=== PATIENT | male | born 1990 | race Caucasian/White ===

== ENCOUNTER 2019-02-14 05:05 | Emergency (ER) | payer OTHER ==
[2019-02-14 05:10] VITALS: BMI 26.4
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
[2019-02-14 06:15] LABS: BASO # 0.03 K/mm3 (0.0-2.0); BASO % 0.6 % (0.0-3.0); EOS # 0.2 (0.0-0.7); EOS % 4.1 % (1.5-5.0); HEMOGLOBIN 13.8 g/dL (14.0-18.0); LYMPH # 1.6 (1.2-3.4); LYMPH % 31.2 % (22.0-35.0); MEAN CELL VOLUME 70.5 fl (80.0-105.0); MEAN CORPUSCULAR HEMOGLOBIN 22.5 pg (25.0-35.0); MEAN CORPUSCULAR HGB CONC 31.9 g/dl (31.0-37.0); MONO # 0.5 (0.1-0.6); MONO % 9.7 % (1.0-6.0); PLATELET COUNT 181 10^3/uL (120.0-450.0); RBC 6.13 10^6/uL (3.5-6.1); RED CELL DISTRIBUTION WIDTH 14.1 % (11.5-14.5); WHITE BLOOD COUNT 5.1 10^3/uL (4.5-11.0)
[2019-02-14 06:25] LABS: INR 1.08; PARTIAL THROMBOPLASTIN TIME 29.7 Seconds (26.9-38.3); PROTHROMBIN TIME 12.2 SECONDS (9.4-12.5)
[2019-02-14 06:34] LABS: ALB/GLOB RATIO 1.6 (1.1-1.8); ALBUMIN 4.6 g/dL (3.0-4.8); ALT/SGPT 57 U/L (7-56); AST/SGOT 47 U/L (17-59); BLOOD UREA NITROGEN 11 mg/dL (7-21); CALCIUM 9.1 mg/dL (8.4-10.5); GFR NON-AFRICAN AMERICAN > 60
[2019-02-14] MEDS ORDERED: Iohexol 350 MG/100 ML VIAL ONE (07:10)
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
[2019-02-14] MEDS ORDERED: TDAP Vaccine 0.5 mL Syr IM ONE (07:44)
[2019-02-14 07:51] VITALS: RESP 18
[2019-02-14 08:52] VITALS: BP 125/61; PULSE 65; TEMP 98; O2SAT 100
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
== END 2019-02-14 09:14 | disposition home or self-care (01) ==
LOC: ED 05:05 → MERGE 05:05 → ED 09:14
DX: S00.81XA Abrasion of other part of head, initial encounter (principal); V58.5XXA Driver of pick-up truck or van injured in noncollision transport accident in traffic accident, initial encounter; Y92.410 Unspecified street and highway as the place of occurrence of the external cause; Z23 Encounter for immunization
CPT/HCPCS: 70450; 71046; 72125; 74177; 80053; 85025; 85610; 85730; 86850; 86900; 90471; 90715; 99285; Q9967